=== PATIENT | male | born 1985 | race Caucasian/White ===

== ENCOUNTER → 2016-07-21 | Outpatient (CLI) | payer BC ==
[~2016-07-21] MED LIST: ATARAX25 MG PO; CEPHALEXIN; MVI; NO HOME MEDICATIONS; SEPTRA DS 8001 TAB PO; VITAMIN C1 TAB PO
== END ==
LOC: COL.RAD 10:21
DX: M25.551 Pain in right hip (principal); M25.552 Pain in left hip